=== PATIENT | male | born 1975 | race Caucasian/White ===

== ENCOUNTER 2018-08-21 03:23 | Emergency (ER) | payer OTHER ==
[~2018-08-21] VITALS: Ht 170.2 cm; Wt 83.0 kg
[2018-08-21 03:49] VITALS: Ht 170.2 cm; Wt 83.0 kg
[2018-08-21 05:59] VITALS: BP 128/80
== END 2018-08-21 05:53 | disposition home or self-care (01) ==
LOC: ED 03:23
DX: J40 Bronchitis, not specified as acute or chronic (principal); J02.9 Acute pharyngitis, unspecified; Z98.890 Other specified postprocedural states
CPT/HCPCS: 87804; J1885